=== PATIENT | female | born 1985 | race African-American/Black ===

== ENCOUNTER 2021-07-23 15:49 | Observation (INO) | payer MEDICAID, SELFPAY ==
[~2021-07-23] VITALS: Ht 170.2 cm; Wt 108.0 kg
[2021-07-23] MEDS ORDERED: ACETAMINOPHEN 500 MG TABLET PO PRN (16:00)
[2021-07-23] MEDS ORDERED: MORPHINE SULFATE 10 MG/ML VIAL IVP PRN (16:00)
[2021-07-23] MEDS ORDERED: LR 1,000 ML IV ONE (16:00)
[2021-07-23] MEDS ORDERED: ACETAMINOPHEN 325 MG TABLET PO PRN (16:00)
[2021-07-23] MEDS ORDERED: NALOXONE HCL 0.4 MG/ML AMP (NARCAN) IVP PRN (16:00)
[2021-07-23] MEDS ORDERED: TEMAZEPAM 15 MG CAPSULE PO PRN (21:00)
[2021-07-23] MEDS ORDERED: HYDROcodone/ACETAMIN 5-325 MG TAB (NORCO/ VICODIN) PO PRN (22:00)
[2021-07-23] MEDS: HYDROcodone/ACETAMIN 10-325 MG TAB PO PRN (22:29)
[2021-07-24] MEDS: HYDROcodone/ACETAMIN 10-325 MG TAB PO PRN ×2 (04:06→13:52)
== END 2021-07-24 14:00 | disposition home or self-care (01) ==
LOC: SPU 15:49
PROVIDERS: ADMIT Specialist; ATTEND Specialist
DX: O9A.213 Injury, poisoning and certain other consequences of external causes complicating pregnancy, third trimester (principal); S59.901A Unspecified injury of right elbow, initial encounter; Z20.822 Contact with and (suspected) exposure to COVID-19; S00.83XA Contusion of other part of head, initial encounter; Z3A.33 33 weeks gestation of pregnancy; W19.XXXA Unspecified fall, initial encounter; Y93.89 Activity, other specified; Y92.89 Other specified places as the place of occurrence of the external cause
CPT/HCPCS: 36415; 70450; 70486; 73070; 76376; 81002; 87426; 96361 ×2; 96374; G0378 ×2; J2270; G0379